=== PATIENT | female | born 2000 | race Hispanic/Latino ===

== ENCOUNTER → 2025-08-02 | Outpatient (CLI) | payer OTHER ==
[2025-08-02 13:20] LABS: PLATELET COUNT, AUTOMATED 268 10^3/uL (150-450)
[2025-08-02 13:52] LABS: HIV 1&2 SCREEN NEGATIVE (NEGATIVE)
[2025-08-02 14:01] LABS: HEPATITIS C VIRUS ABY INDEX < 0.02 INDEX (<0.8)
[2025-08-02 14:22] LABS: Trichomonas vaginalis (AMP) NOT DETECTED (NEGATIVE)
[2025-08-02 14:45] LABS: GC DNA AMPLIFICATION NEGATIVE (NEGATIVE)
== END ==
LOC: M PLALAB 09:53
PROVIDERS: ATTEND Nurse Practitioner Family
DX: Z34.80 Encounter for supervision of other normal pregnancy, unspecified trimester (principal)

== ENCOUNTER → 2025-08-09 | Outpatient (CLI) | payer OTHER | LOC: M RAD 08:53 → EDUNIT# 09:30 | PROVIDERS: ATTEND Nurse Practitioner Family | DX: Z34.92 Encounter for supervision of normal pregnancy, unspecified, second trimester (principal); Z3A.24 24 weeks gestation of pregnancy ==